=== PATIENT | female | born 1965 | race Caucasian/White ===

== ENCOUNTER 2020-05-01 16:12 | Emergency (ER) | payer BC, OTHER ==
[~2020-05-01] VITALS: Ht 177.8 cm; Wt 95.5 kg
[~2020-05-01 16:12] MED LIST: ZOF4T PO
[2020-05-01 18:12] VITALS: BP 141/92
== END 2020-05-01 18:09 | disposition home or self-care (01) ==
LOC: ER 16:14
DX: S82.142A Displaced bicondylar fracture of left tibia, initial encounter for closed fracture (principal); S52.101A Unspecified fracture of upper end of right radius, initial encounter for closed fracture; Z86.73 Personal history of transient ischemic attack (TIA), and cerebral infarction without residual deficits; Z72.89 Other problems related to lifestyle; Z88.5 Allergy status to narcotic agent; Z79.899 Other long term (current) drug therapy; W01.0XXA Fall on same level from slipping, tripping and stumbling without subsequent striking against object, initial encounter; Y93.89 Activity, other specified; Y92.89 Other specified places as the place of occurrence of the external cause; Y99.8 Other external cause status
CPT/HCPCS: 29125; 99284